=== PATIENT | male | born 1995 | race Caucasian/White ===

== ENCOUNTER 2020-04-23 11:58 | Emergency (ER) | payer MEDICAID ==
[~2020-04-23] VITALS: Ht 182.9 cm; Wt 77.3 kg
[2020-04-23 12:06] VITALS: TEMP 97.8
[2020-04-23 14:59] LABS: COLLECTION METHOD CLEAN CATCH
[2020-04-23 16:07] LABS: MUCOUS Present /lpf; PH 6 (5-8); SQUAMOUS EPITHELIAL 0-2 /hpf; URINE APPEARANCE Cloudy; URINE BACTERIA None Seen /hpf; URINE BILIRUBIN Negative (NEGATIVE); URINE BLOOD 2+ (NEGATIVE); URINE COLOR Yellow; URINE GLUCOSE Negative (NEGATIVE); URINE KETONE Negative (NEGATIVE); URINE LEUKOCYTE ESTERASE Negative (NEGATIVE); URINE NITRATE Negative (NEGATIVE); URINE PROTEIN(semi-quant) 1+ (NEGATIVE); URINE RBC >50 /hpf
[2020-04-23] MEDS ORDERED: DOXYCYCLINE HY100 MG PO (16:20)
[2020-04-23 16:35] VITALS: BP 123/71; PULSE 70
== END 2020-04-23 16:36 | disposition home or self-care (01) ==
LOC: COL.ER 11:58
PROVIDERS: Nurse Practitioner Primary Care
DX: N45.1 Epididymitis (principal); N39.0 Urinary tract infection, site not specified
CPT/HCPCS: J0696; J1885

== ENCOUNTER 2020-09-28 19:32 | Emergency (ER) | payer OTHER, MEDICAID ==
[~2020-09-28] VITALS: Ht 182.9 cm; Wt 77.3 kg
[~2020-09-28 19:32] MED LIST: DOXYCYCLINE HY100 MG PO
[2020-09-28 19:37] VITALS: TEMP 98.7
[2020-09-28 20:20] LABS: BASO % 0.5 % (0.0-2.0); EOS % 0.3 % (0-4.0); GRAN # 4.6 (1.4-6.5); GRAN % 60.5 % (42.2-75.2); HEMATOCRIT 45.4 % (42.0-52.0); LYMPH # 2.5 (1.2-3.4); LYMPH % 32.1 % (20.0-51.0); MEAN CELL VOLUME 89 fl (80.0-100.0); MEAN CORPUSCULAR HEMOGLOBIN 32 pg (27.0-31.0); MEAN CORPUSCULAR HGB CONC 35 g/dl (33.0-37.0); MEAN PLATELET VOLUME 10.9 fl (7.4-10.4); MONO # 0.5 (0.1-0.6); MONO % 6.3 % (1.7-9.3); PLATELET COUNT 233 K/mm3 (130-400); RED BLOOD COUNT 5.08 M/mm3 (4.20-5.60); REDCELL DISTRIBUTION WIDTH-CV 12.3 % (11.5-14.5)
[2020-09-28 21:20] VITALS: BP 128/68; PULSE 67
== END 2020-09-28 21:25 | disposition home or self-care (01) ==
LOC: COL.ER 19:32
PROVIDERS: Emergency Medicine
DX: R07.89 Other chest pain (principal); Z20.822 Contact with and (suspected) exposure to COVID-19

== ENCOUNTER 2020-10-29 18:26 | Emergency (ER) | payer MEDICAID ==
[~2020-10-29] VITALS: Ht 182.9 cm; Wt 81.8 kg
[2020-10-29 18:41] VITALS: TEMP 99.4
[2020-10-29 19:59] VITALS: BP 124/70; PULSE 74
== END 2020-10-29 19:59 | disposition home or self-care (01) ==
LOC: COL.ER 18:26
DX: R19.7 Diarrhea, unspecified (principal)

== ENCOUNTER 2021-01-10 07:08 | Emergency (ER) | payer MEDICAID ==
[~2021-01-10] VITALS: Ht 182.9 cm; Wt 79.5 kg
[2021-01-10 07:15] VITALS: TEMP 97.8
[2021-01-10 07:48] LABS: BASO # 0.1 K/mm3 (0.0-0.2); BASO % 0.8 % (0.0-2.0); EOS # 0.1 K/mm3 (0.0-0.7); EOS % 1.1 % (0-4.0); GRAN % 46.2 % (42.2-75.2); HEMATOCRIT 43.2 % (42.0-52.0); HEMOGLOBIN 14.7 g/dl (13.5-18.0); LYMPH # 2.8 K/mm3 (1.2-3.4); LYMPH % 44.4 % (20.0-51.0); MEAN CELL VOLUME 91 fl (80.0-100.0); MEAN CORPUSCULAR HEMOGLOBIN 31 pg (27.0-31.0); MEAN CORPUSCULAR HGB CONC 34 g/dl (33.0-37.0); MEAN PLATELET VOLUME 10.8 fl (7.4-10.4); MONO # 0.5 K/mm3 (0.1-0.6); MONO % 7.2 % (1.7-9.3); PLATELET COUNT 227 K/mm3 (130-400); RED BLOOD COUNT 4.75 M/mm3 (4.20-5.60); REDCELL DISTRIBUTION WIDTH-CV 12.8 % (11.5-14.5)
[2021-01-10 08:00] LABS: ALBUMIN 4.4 gm/dL (3.5-5.0); BILIRUBIN,TOTAL 0.4 mg/dL (0.2-1.2); CALCIUM 9.7 mg/dL (8.4-10.2); CREATININE, serum 0.91 mg/dL (0.72-1.25); POTASSIUM 3.9 mmol/L (3.5-4.5); TOTAL PROTEIN 7.3 gm/dL (6.2-8.1)
[2021-01-10 08:06] LABS: TROPONIN-I 0.016 ng/mL (0.00-0.033)
[2021-01-10 08:23] VITALS: BP 125/85; PULSE 82
== END 2021-01-10 08:27 | disposition home or self-care (01) ==
LOC: COL.ER 07:08
PROVIDERS: Student in an Organized Health Care Education/Training Program
DX: R07.81 Pleurodynia (principal)
CPT/HCPCS: J1885; J7030

== ENCOUNTER 2021-05-06 12:20 | Emergency (ER) | payer MEDICAID ==
[~2021-05-06] VITALS: Ht 182.9 cm; Wt 79.5 kg
[2021-05-06 12:28] VITALS: TEMP 98.8
[2021-05-06] MEDS ORDERED: NORCO 325 MG-51 TAB PO (14:01)
[2021-05-06] MEDS ORDERED: CRUTCHES MC (14:01)
[2021-05-06 14:29] VITALS: BP 141/83; PULSE 81
== END 2021-05-06 14:33 | disposition home or self-care (01) ==
LOC: COL.ER 12:20
DX: S93.402A Sprain of unspecified ligament of left ankle, initial encounter (principal); X50.1XXA Overexertion from prolonged static or awkward postures, initial encounter; Y93.39 Activity, other involving climbing, rappelling and jumping off; Y92.830 Public park as the place of occurrence of the external cause
CPT/HCPCS: J2270; J2405